=== PATIENT | female | born 1995 | race African-American/Black ===

== ENCOUNTER 2019-03-05 18:24 | Day surgery (SDC) | payer OTHER ==
[2019-03-05 19:14] VITALS: BP 113/66; TEMP 98.3; BMI 32.8
--- NOTE | 2019-03-05 19:55 | PDOC.LDHP ---
Labor and Delivery H&P Chief complaint: contractions HPI: 23 y/o at 35w0d, patient of Dr. New, presents with ctx q 10 mins. Denies VB, LOF, or other concerns. +FM. Reportedly delivered extremely premature by LTCS for PPROM with her previous . ROS neg for HEENT, CV, pulm, GI, , neuro, psych, skin, musculoskeletal, or constitutional symptoms other than mentioned above. OB History Details: 1 prior c/s at 23 weeks. Patient reports it was LTCS. Current complications: none Past Medical History: HSV2 Current medications: pre-ju vitamins, other (Maia, zofran) Previous surgical history: low tranverse CS (x1) Allergies/Adverse Reactions: Allergies Allergy/AdvReac Type Severity Reaction Status Date / Time No Known Allergies Allergy Verified 03/05/19 18:59 Social history: none - Physical Exam Vital signs reviewed and normal: yes General: NAD, resting Lungs: nonlabored breathing Abdomen: gravid Extremeties: no edema FHT: category 1 (140s, mod variability, + accels, no decels) [place] contractions every: occasional - Vaginal Exam cm dilated: 1 (unchanged after 2 hours) Effacement: 50% Station: -3 - OB Labs Blood type: O RH: positive Antibody Screen: negative HIV: negative RPR: negative HEPSAg: negative 1 hour GCT: positive Rubella: immune - Assessment 23 y/o at 35w0d with no e/o PTL. 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 Now only feeling mild pain intermittently on left side. status reassuring with reactive NST. - Plan -: D/c home with precautions. Advised to keep appointments. Next appointment Wednesday. Given a note for work excuse tomorrow.
[2019-03-05] MEDS ORDERED: hydrALAZINE 20 MG/ML VIAL SLOW IVP PRN (20:08)
[2019-03-05] MEDS ORDERED: Lactated Ringer's 1,000 ML IV SCH (20:15)
== END 2019-03-05 21:40 | disposition home health service (06) ==
LOC: L&D/OP 18:24
PROVIDERS: ATTEND Obstetrics & Gynecology
DX: O47.03 False labor before 37 completed weeks of gestation, third trimester (principal); O34.211 Maternal care for low transverse scar from previous cesarean delivery; Z3A.35 35 weeks gestation of pregnancy
CPT/HCPCS: 96360; 99283

== ENCOUNTER 2019-04-06 09:43 | Inpatient (IN) | payer OTHER ==
[2019-04-06 10:25] VITALS: BMI 34.0
[2019-04-06] MEDS ORDERED: FLU VACC QS2019-20(6MOS UP)/PF 60 MCG/0.5 ML SYRINGE IM ONE (10:45)
[2019-04-06] MEDS ORDERED: Bicitra 30 ML UDCUP PO SCH (10:47)
[2019-04-06] MEDS ORDERED: Ondansetron PF 4 MG/2 ML Vial IVP PRN ×3 (10:47→13:50)
[2019-04-06] MEDS ORDERED: Docusate 100 MG CAP PO PRN (10:47)
[2019-04-06] MEDS ORDERED: hydrALAZINE 20 MG/ML VIAL SLOW IVP PRN ×2 (10:47→13:50)
[2019-04-06] MEDS ORDERED: Promethazine HCl 25 MG/ML VIAL IM PRN ×2 (10:47→12:39)
[2019-04-06 11:04] LABS: Hemoglobin 12.7 g/dL (12.0-16.0); Mean Corpuscular HGB CONC 34.8 g/dL (32.0-36.0); Mean Corpuscular Hemoglobin 32.7 pg (27.0-31.0); Mean Corpuscular Volume 93.9 fL (78.0-98.0); Mean Platelet Volume 7.3 fL (7.4-10.4); Platelet Count 294 thou/uL (130-400); RBC Distribution Width 11.9 % (11.5-14.5); Red Blood Cell (RBC) Count 3.88 mill/uL (4.20-5.40); White Blood Cell (WBC) Count 11.6 thou/uL (4.8-10.8)
[2019-04-06] MEDS: Lactated Ringer's 1,000 ML IV SCH ×4 (11:30→20:55)
[2019-04-06] MEDS ORDERED: Bicitra 30 ML UDCUP ONE (11:33)
[2019-04-06] MEDS ORDERED: MORPHINE 5 MG/10 ML PF VIAL ONE (11:39)
[2019-04-06] MEDS ORDERED: Oxytocin 10 UNITS/ML VIAL ONE ×2 (11:40→12:47)
[2019-04-06] MEDS ORDERED: PHENYLEPHRINE-NS 100 MCG/ML 10 ML SYRINGE ONE (11:40)
[2019-04-06 11:47] LABS: Syphilis Antibody Nonreactive (Nonreactive); Syphilis Antibody Index 0.02 S/CO (<1.00 Non-Reactive)
[2019-04-06 11:49] LABS: HBSAg Index 0.18 S/CO (0-0.99); Hep B Surf Ag Non-Reactive S/CO (NonReactive)
[2019-04-06] MEDS ORDERED: Meperidine HCl/PF 25 MG/ML VIAL SLOW IVP PRN (12:39)
[2019-04-06] MEDS ORDERED: Promethazine HCl 25 MG SUPP PR PRN (12:39)
[2019-04-06] MEDS ORDERED: Naloxone HCl 0.4 mg/ml Vial IVP PRN ×2 (12:39)
[2019-04-06] MEDS ORDERED: diphenhydrAMINE 50 MG/ML VIAL IVP PRN (12:39)
[2019-04-06] MEDS ORDERED: Naloxone HCl 0.4 mg/ml Vial IV PRN (12:39)
[2019-04-06] MEDS ORDERED: HYDROmorphone 2 MG/ML VIAL SLOW IVP PRN (12:39)
[2019-04-06] MEDS ORDERED: L&D-Morphine 4 MG/ML VIAL SLOW IVP PRN (12:39)
[2019-04-06] MEDS ORDERED: Ondansetron HCl/PF 4 MG/2 ML Vial IVP PRN (12:39)
[2019-04-06] MEDS ORDERED: Communication Order-Pharmacy FS SCH (12:45)
[2019-04-06] MEDS ORDERED: Ketorolac Tromethamine 30 MG/ML VIAL IVP SCH (12:45)
[2019-04-06] MEDS ORDERED: CEFAZOLIN 2 GM in Premix Bag 1 BAG IVPB SCH (13:00)
[2019-04-06] MEDS ORDERED: Fentanyl 100 MCG/2 ML VIAL ONE (13:20)
[2019-04-06] MEDS ORDERED: Lanolin Ointment 7 GM TUBE TOP PRN (13:50)
[2019-04-06] MEDS ORDERED: Acetaminophen 325 MG TAB PO PRN (13:50)
[2019-04-06] MEDS ORDERED: Misoprostol 200 MCG TAB PR PRN (13:50)
[2019-04-06] MEDS ORDERED: Bisacodyl 10 MG SUPP PR PRN (13:50)
[2019-04-06] MEDS ORDERED: Zolpidem Tartrate 5 MG TAB PO PRN (13:50)
[2019-04-06] MEDS ORDERED: Meperidine HCl/PF 25 MG/ML VIAL IM PRN (13:50)
[2019-04-06] MEDS ORDERED: HYDROcodone/Acetaminophen 5/325 mg Tablet PO PRN ×2 (13:50)
[2019-04-06] MEDS ORDERED: Adacel (T-DAP) 0.5 ML SYRINGE IM ONE (13:50)
[2019-04-06] MEDS ORDERED: Simethicone Chewable 80 MG TAB PO PRN (13:50)
[2019-04-06] MEDS ORDERED: Ketorolac Tromethamine 30 MG/ML VIAL ONE (13:59)
--- NOTE | 2019-04-06 14:28 | OP ---
DATE OF PROCEDURE: 04/06/2019 RESIDENT SURGEON: Yesenia Adame DO [employer] SURGEON: Ulices Velazquez, MS3 PREOPERATIVE DIAGNOSES: 1. Term intrauterine at 39 weeks. 2. Prior section. 3. No trial of labor. POSTOPERATIVE DIAGNOSES: 1. Term intrauterine at 39 weeks. 2. Prior section. 3. No trial of labor. 4. Addition of abdominal pelvic adhesions. PROCEDURES PERFORMED: 1. Repeat low transverse section. 2. Lysis of adhesions. ANESTHESIA: Spinal catheterization. FINDINGS: 1. Significant fascial adhesions on entry. 2. Filmy adhesions from uterus to anterior abdominal wall. 3. Omental adhesions to fundal of the uterus. 4. Vigorous female , 7 pounds 3 ounces, 7, 8 and 9. SPECIMENS REMOVED: Cord blood. COMPLICATIONS: None. ESTIMATED BLOOD LOSS: Approximately 400 mL. DESCRIPTION OF PROCEDURE: After thorough consent and counseling, Ms. Dickinson was taken to the operating room and adequate level of anesthesia was obtained via spinal catheterization. The patient was prepped and draped in usual sterile fashion for abdominal surgery. A Melgar was placed in the bladder, which was noted to be draining clear urine. heart tones were obtained in the OR. A team time-out was performed per protocol. Attention was then turned to performing the repeat low-transverse section. A Pfannenstiel incision was made. The old scar was excised. The incision was carried sharply to the fascia, which was also sharply incised. There were dense adhesions noted in the subcutaneous tissues and the fascia. The fascia was also noted to be densely adherent to the rectus abdominis muscles and planes were very challenging to identify. The midline was carefully identified and laterally. The abdominal peritoneal cavity was entered with usual safeguards carried out. There were filmy adhesions noted from the uterus to the anterior abdominal wall. There were also some omental adhesions noted posteriorly. A retractor was placed and a bladder flap was created on the vesicouterine peritoneum. A bladder blade was then placed. A low-transverse incision was made on the well-developed lower uterine segment. Upon entering the amniotic sac, copious amount of clear amniotic fluid was visualized. The infant was noted to be vertex presentation in the occiput anterior position, still high in the pelvis. Head was delivered and baby was bulb suctioned on the abdomen. Shoulders and body were then delivered in an atraumatic fashion. The cord was doubly clamped and cut. The infant was handed to pediatric team in attendance for the delivery. The was a vigorous viable female weighing 7 pounds 3 ounces with Apgars of 7, 8 and 9, obtained at 1, 5 and 10 minutes respectively. Cord blood was obtained. Cord gases were placed on standby. The placenta was manually delivered. The uterus was exteriorized and good tone was noted. Lysis of adhesions was performed to free the uterus from the omental and filmy adhesions to the anterior abdominal wall. The uterine cavity was cleared of any remaining clot and fluid. The low-transverse incision was then closed with a running locking ligature of #1 chromic. Multiple [id number] ligatures of #1 chromic to facilitate strength and hemostasis. The vesicouterine peritoneum was reapproximated to the lower segment with a running ligature of 2-0 Monocryl. Good tone and hemostasis were once again noted. The posterior cul-de-sac and gutters were cleared of clot and fluid. Seprafilm was applied to the low-transverse incision and to the anterior aspect of the uterus for adhesion prevention. The uterus was then returned to the abdomen. The incision was once again inspected and noted to be hemostatic. Lap, sponge, and needle counts were correct. The peritoneum was closed with running ligature of 2-0 Vicryl suture. The rectus muscles were reapproximated in the midline with interrupted ligatures of both 2-0 Vicryl suture and #1 chromic suture. The fascia was then closed with 2 ligatures of 0 Vicryl suture, which were tied in the midline. Good fascial integrity was appreciated. Hemostasis was obtained with Bovie cauterization. The subcutaneous tissue was closed with interrupted ligatures of 2-0 plain. The skin was then closed with a subcuticular stitch of 4-0 Monocryl and dressed with Dermabond. Lap, sponge, and needle counts were correct x3. The estimated blood loss during the surgical procedure was approximately 400 mL; QBL was pending. A pressure dressing and ice packs were subsequently placed. Team debriefing was performed. The patient was taken to recovery room in good condition. Immediately following surgery, the patient and family were made aware of the surgical procedure and operative findings. Questions answered to their satisfaction. Job ID: [id number]
[2019-04-06] MEDS ORDERED: Naloxone HCl 0.4 mg/ml Vial ONE (14:39)
[2019-04-06] MEDS: diphenhydrAMINE 25 MG CAP PO PRN ×2 (17:12→23:30)
[2019-04-06] MEDS: Ibuprofen 800 MG TAB PO SCH ×2 (17:40→22:29)
[2019-04-06] MEDS: Ketorolac Tromethamine 30 MG/ML VIAL IVP PRN (20:48)
[2019-04-06] MEDS: Docusate Calcium (SURFAK) 240 MG CAP PO SCH (22:26)
[2019-04-06] MEDS: Ferrous Sulfate 325 MG TAB PO SCH (22:26)
[2019-04-07] MEDS: Ketorolac Tromethamine 30 MG/ML VIAL IVP PRN (05:33)
[2019-04-07 05:48] LABS: Hemoglobin 10.2 g/dL (12.0-16.0); Mean Corpuscular HGB CONC 35.4 g/dL (32.0-36.0); Mean Corpuscular Hemoglobin 33.1 pg (27.0-31.0); Mean Corpuscular Volume 93.4 fL (78.0-98.0); Mean Platelet Volume 6.8 fL (7.4-10.4); Platelet Count 214 thou/uL (130-400); RBC Distribution Width 11.7 % (11.5-14.5); Red Blood Cell (RBC) Count 3.07 mill/uL (4.20-5.40); White Blood Cell (WBC) Count 8.3 thou/uL (4.8-10.8)
[2019-04-07] MEDS: Lactated Ringer's 1,000 ML IV SCH ×3 (08:24→23:08)
[2019-04-07] MEDS: Ibuprofen 800 MG TAB PO SCH ×3 (08:24→23:45)
[2019-04-07] MEDS: Prenatal Vitamin 1 TAB PO SCH (09:11)
[2019-04-07] MEDS: Docusate Calcium (SURFAK) 240 MG CAP PO SCH ×2 (09:11→21:54)
[2019-04-07] MEDS: Ferrous Sulfate 325 MG TAB PO SCH ×2 (09:12→23:08)
[2019-04-08] MEDS: Ibuprofen 800 MG TAB PO SCH (06:40)
[2019-04-08] MEDS: Lactated Ringer's 1,000 ML IV SCH (06:42)
[2019-04-08] MEDS: Prenatal Vitamin 1 TAB PO SCH (08:43)
[2019-04-08] MEDS: Ferrous Sulfate 325 MG TAB PO SCH (08:44)
[2019-04-08] MEDS: Docusate Calcium (SURFAK) 240 MG CAP PO SCH (08:44)
[2019-04-08 09:20] VITALS: BP 99/64; TEMP 97.2
== END 2019-04-08 12:40 | disposition home or self-care (01) | DRG 787 ==
LOC: L&D-LIB 09:43 → L&D 10:23 → 3SW 15:59
PROVIDERS: ADMIT Obstetrics & Gynecology; ATTEND Obstetrics & Gynecology
PROC: 10D00Z1 Extraction of Products of Conception, Low, Open Approach (ICD-10-PCS; principal; 2019-04-06)
PROC: 0DNU0ZZ Release Omentum, Open Approach (ICD-10-PCS; 2019-04-06)
DX: O34.211 Maternal care for low transverse scar from previous cesarean delivery (principal); O98.52 Other viral diseases complicating childbirth; B00.9 Herpesviral infection, unspecified; O99.824 Streptococcus B carrier state complicating childbirth; N73.6 Female pelvic peritoneal adhesions (postinfective); Z3A.39 39 weeks gestation of pregnancy; Z37.0 Single live birth
CPT/HCPCS: 36415; 85027; 86780; 86850; 86900; 86901; 87340; J0690; J1885; J2274; J2310; J2405; J2590; J3010; Q0163

== ENCOUNTER 2024-03-16 13:57 | Outpatient (CLI) | payer BC | END 2024-03-16 13:58 | disposition home or self-care (01) | LOC: BICULT 13:57 | PROVIDERS: ATTEND Obstetrics & Gynecology | DX: N63.20 Unspecified lump in the left breast, unspecified quadrant (principal) ==